=== PATIENT | male | born 1990 | race Hispanic/Latino ===

== ENCOUNTER 2019-03-21 06:23 | Emergency (ER) | payer OTHER ==
[~2019-03-21] VITALS: Ht 162.6 cm; Wt 72.6 kg
--- OUTSIDE RECORDS SUMMARY | 2019-03-21 06:26 | XMS REPORT ---
Author Author [facility] [place] Address Unknown Phone Unavailable Care Team Providers Care Insurance Rater Name Role Phone Unavailable Unavailable Problems This patient has no known problems. Allergies, Adverse Reactions, Alerts This patient has no known allergies or adverse reactions. Medications This patient has no known medications. Encounters Start Date/Time End Date/Time Encounter Type Admission Type Attending [facility] Facility Care Department Encounter ID 2018-12-22 16:52:00 2018-12-22 16:52:00 Emergency E [facility] [id number] 2018-12-18 18:01:00 2018-12-18 18:01:00 Emergency E [facility] [id number] 2018-03-20 21:12:00 2018-03-20 21:12:00 Emergency E [facility] [id number]
[2019-03-21] MEDS ORDERED: ACETAMIN/BUTALBITAL/CAFFEINE TAB PO ONE (06:45)
[2019-03-21] MEDS ORDERED: ONDANSETRON HCL 4 MG ORAL DISINTEGRATING TAB PO ONE (06:45)
[2019-03-21] MEDS ORDERED: TRAMADOL HCL 50 MG TAB PO ONE (07:00)
--- NOTE | 2019-03-21 07:09 | Diagnostic Imaging Report ---
EXAMINATION: Head CT HISTORY: Headache, numbness, left-sided pain for the last 3 hours. COMPARISON: None. TECHNIQUE: Multidetector axial images were obtained without contrast from the foramen magnum to the vertex . The images were reconstructed using brain and bone algorithms. Thin section brain images were reformatted into coronal and sagittal planes. Image quality: Motion/streaking artifact limits the evaluation of the skull base and posterior cranial fossa. Dose modulation, iterative reconstruction, and/or weight based adjustment of the mA/kV was utilized to reduce the radiation dose to as low as reasonably achievable. FINDINGS: Parenchyma: 1. No abnormal densities. 2. No mass or hemorrhage. No CT evidence of acute territorial vascular insult. Extra-axial spaces:No abnormal density. No extra-axial fluid collections Brain volume: Normal for age. Ventricles: No hydrocephalus or displacement. Arteries: No density suggestive of thrombus. Dural sinuses: No abnormal density. Foramen magnum: No mass, Chiari malformation, or basilar invagination. Sella: No obvious mass. Paranasal/mastoid sinuses: Imaged portions unremarkable. Skull/Scalp: No lytic or blastic lesions. No fractures. Remote left superior parietal craniotomy defect completely healed. IMPRESSION: 1. No acute intracranial abnormalities, particularly no hemorrhage or acute cortical infarct. 2. Remote left parietal craniotomy. Signed by: Dr. Kristy Marte M.D. on 03/21/2019 7:06 AM
[2019-03-21] MEDS ORDERED: ZOFRAN4 MG SL (07:20)
[2019-03-21] MEDS ORDERED: FIORICET 50-301 EACH PO (07:20)
[2019-03-21 07:22] VITALS: BP 120/75
== END 2019-03-21 07:26 | disposition home or self-care (01) ==
LOC: FSED 06:23
DX: G43.019 Migraine without aura, intractable, without status migrainosus (principal)
CPT/HCPCS: 70450; 99283; Q0162